=== PATIENT | male | born 2000 | race Caucasian/White ===

== ENCOUNTER 2020-07-04 02:55 | Inpatient (IN) | payer BC, SELFPAY ==
[~2020-07-04] VITALS: Ht 172.7 cm; Wt 60.8 kg
[2020-07-04 03:03] VITALS: BP_SYST 126
[2020-07-04] MEDS ORDERED: ASPIRIN 81 MG TAB.CHEW PO ONE (03:15)
[2020-07-04 03:26] LABS: BASOPHILS # (AUTO) 0.1 K/uL (0.0-0.2); BASOPHILS % (AUTO) 0.6 % (0.0-2.0); EOSINOPHILS # (AUTO) 0.1 K/uL (0.0-0.4); HEMATOCRIT 40.8 % (36-54); HEMOGLOBIN 13.7 g/dL (14.0-18.0); LYMPHOCYTES # (AUTO) 4.1 K/uL (1.0-5.5); LYMPHOCYTES % (AUTO) 29.1 % (20.5-51.5); MEAN CORPUSCULAR HEMOGLOBIN 30 pg (27-31); MEAN CORPUSCULAR HGB CONC 34 % (32-36); MEAN CORPUSCULAR VOLUME 88 fL (79.0-98.0); MONOCYTES # (AUTO) 0.9 K/uL (0.0-1.0); MONOCYTES % (AUTO) 6.4 % (1.7-9.3); NEUTROPHILS # (AUTO) 8.8 K/uL (1.8-7.7); NEUTROPHILS % (AUTO) 62.9 % (40.0-70.0); PLATELET COUNT (AUTO) 233 K/uL (130-430); RED BLOOD CELL COUNT(AUTO) 4.65 MIL/uL (4.2-6.2); RED CELL DISTRIBUTION WIDTH 12.7 % (9.0-15.0)
[2020-07-04] MEDS ORDERED: IBUPROFEN 600 MG TABLET PO ONE (03:30)
[2020-07-04 03:38] LABS: CALCIUM 8.6 mg/dL (8.4-11.0); CREATININE 1.03 mg/dL (0.55-1.30); POTASSIUM 3.2 mmol/L (3.5-5.1)
[2020-07-04 03:42] LABS: PROTHROMBIN TIME 10.6 SECS (9.5-12.5)
[2020-07-04 03:44] LABS: ALBUMIN 4.3 g/dL (3.4-4.8); TOTAL BILIRUBIN 1.3 mg/dL (0.0-1.0)
[2020-07-04] MEDS ORDERED: IBUPROFEN 600 MG TABLET ONE (03:45)
[2020-07-04] MEDS ORDERED: NACL 0.9% 1,000 ML IV SCH (04:39)
[2020-07-04 06:05] VITALS: BP_SYST 116
[2020-07-04 08:42] VITALS: BP_SYST 103
[2020-07-04] MEDS ORDERED: DOCUSATE SODIUM 100 MG/10 ML UDC PO PRN (09:45)
[2020-07-04] MEDS ORDERED: ACETAMINOPHEN 500 MG TABLET PO PRN (09:45)
[2020-07-04] MEDS ORDERED: HYDROcodone/ACETAMIN 7.5-325 MG TAB PO PRN (09:45)
[2020-07-04] MEDS ORDERED: ONDANSETRON HCL 4 MG/2 ML VIAL IVP PRN (09:45)
[2020-07-04] MEDS ORDERED: ZOLPIDEM TARTRATE 5 MG TABLET PO PRN (09:45)
[2020-07-04] MEDS ORDERED: PANTOPRAZOLE SODIUM 40 MG TAB PO ONE (10:15)
[2020-07-04] MEDS ORDERED: VANCOMYCIN HCL 1,000 MG in NS 250 ML IV SCH (11:00)
[2020-07-04 11:53] VITALS: BP_SYST 109
[2020-07-04 14:26] LABS: BILIRUBIN,DIRECT 0.3 mg/dL (0.0-0.3); FREE T4 (FREE THYROXINE) 1.2 ng/dL (0.6-1.6)
[2020-07-04] MEDS: IBUPROFEN 400 MG TABLET PO SCH ×2 (15:00→20:27)
[2020-07-04 15:33] LABS: BILIRUBIN,URINE NEGATIVE (NEGATIVE); BLOOD, URINE NEGATIVE (NEGATIVE); CLARITY/URINE CLEAR (CLEAR); COLOR,URINE YELLOW (YELLOW); GLUCOSE,URINE NEGATIVE (NEGATIVE); KETONES,URINE 1+ (NEGATIVE); LEUKOCYTE ESTERASE ,URINE NEGATIVE (NEGATIVE); NITRITE, URINE NEGATIVE (NEGATIVE); PROTEIN URINE NEGATIVE (NEGATIVE); UROBILINOGEN,URINE 0.2 (0.2-1.0)
[2020-07-04 16:02] LABS: BARBITURATE, URINE NEGATIVE (NEG <=200); BENZODIAZEPINE, URINE NEGATIVE (NEG <=150); CANNABINOID, URINE POSITIVE (NEG <=50); COCAINE, URINE NEGATIVE (NEG <=150); METHAMPHETAMINES SCREEN,URINE NEGATIVE (NEG <=500); OPIATE, URINE NEGATIVE (NEG <=100); PHENCYCLIDINE SCREEN,URINE NEGATIVE (NEG <=25); UR TRICYCLIC ANTIDEPRESSANTS NEGATIVE (NEG <=300); URINE AMPHETAMINE NEGATIVE (NEG <=500); URINE METHADONE NEGATIVE (NEG <=200); URINE OXYCODONE SCREEN NEGATIVE (NEG <=100); URINE PROPOXYPHENE SCREEN NEGATIVE (NEG <=300)
[2020-07-04 16:42] VITALS: BP_SYST 112
[2020-07-04] MEDS ORDERED: KETOROLAC TROMETHAMINE 15 MG VIAL IVP SCH (17:00)
[2020-07-04 20:00] VITALS: BP_SYST 108
[2020-07-05 00:02] VITALS: BP_SYST 105
[2020-07-05 08:00] VITALS: BP_SYST 129
[2020-07-05 08:32] LABS: BASOPHILS % (AUTO) 0.3 % (0.0-2.0); EOSINOPHILS # (AUTO) 0.2 K/uL (0.0-0.4); EOSINOPHILS % (AUTO) 2.8 % (0.0-4.0); HEMATOCRIT 41.6 % (36-54); HEMOGLOBIN 13.8 g/dL (14.0-18.0); LYMPHOCYTES # (AUTO) 2.1 K/uL (1.0-5.5); LYMPHOCYTES % (AUTO) 33.3 % (20.5-51.5); MEAN CORPUSCULAR HEMOGLOBIN 29 pg (27-31); MEAN CORPUSCULAR HGB CONC 33 % (32-36); MEAN CORPUSCULAR VOLUME 88 fL (79.0-98.0); MONOCYTES # (AUTO) 0.3 K/uL (0.0-1.0); NEUTROPHILS # (AUTO) 3.8 K/uL (1.8-7.7); NEUTROPHILS % (AUTO) 58.6 % (40.0-70.0); PLATELET COUNT (AUTO) 225 K/uL (130-430); RED CELL DISTRIBUTION WIDTH 12.9 % (9.0-15.0); WHITE BLOOD COUNT (AUTO) 6.5 K/uL (4.5-11.0)
[2020-07-05] MEDS: IBUPROFEN 400 MG TABLET PO SCH (08:36)
[2020-07-05 08:57] LABS: CALCIUM 8.7 mg/dL (8.4-11.0); CREATININE 0.99 mg/dL (0.55-1.30)
[2020-07-05] MEDS ORDERED: POTASSIUM CHLORIDE 20 MEQ TAB.PRT.SR PO PRN (09:00)
[2020-07-05] MEDS ORDERED: PANTOPRAZOLE SODIUM 40 MG TAB PO SCH (09:00)
[2020-07-05] MEDS ORDERED: NAPR220C15 PO (11:20)
[2020-07-05 11:27] VITALS: BP_SYST 110
[2020-07-05 11:29] VITALS: BP_SYST 110
== END 2020-07-05 12:01 | disposition home or self-care (01) | DRG 313 ==
LOC: SED 02:55 → STU 04:35
PROVIDERS: ADMIT Family Medicine; ATTEND Family Medicine
DX: R07.89 Other chest pain (principal); D72.829 Elevated white blood cell count, unspecified; E87.6 Hypokalemia; F12.90 Cannabis use, unspecified, uncomplicated; Z20.828 Contact with and (suspected) exposure to other viral communicable diseases
CPT/HCPCS: 36415; 71045; 80048; 80053; 80061; 80307; 81003; 82150-TC; 82248-TC; 82550-TC; 83036; 83605; 83690-TC; 83735-TC; 83880; 84100-TC; 84439; 84443-TC; 84484; 85025; 85379; 85610-TC; 85651-TC; 93005; 93306; 96360; 99285; G0378; J3370; J7030; J7050

== ENCOUNTER 2023-10-21 15:26 | Emergency (ER) | payer BC, OTHER ==
[~2023-10-21] VITALS: Ht 172.7 cm; Wt 59.0 kg
[~2023-10-21 15:26] MED LIST: NAPR220C15 PO
[2023-10-21 16:04] VITALS: BP_SYST 112; PULSE 62; RESP 18; TEMP 98.4; O2SAT 98
[2023-10-21 19:45] VITALS: BP_SYST 115; PULSE 54; RESP 14; TEMP 98.2; O2SAT 97
== END 2023-10-21 19:45 | disposition home or self-care (01) ==
LOC: SED 15:26
DX: R51.9 Headache, unspecified (principal); R42 Dizziness and giddiness; Z87.09 Personal history of other diseases of the respiratory system; Z79.899 Other long term (current) drug therapy
CPT/HCPCS: 70450-TC; 76376; 99284